=== PATIENT | male | born 1995 | race Caucasian/White ===

== ENCOUNTER 2017-06-05 05:28 | Day surgery (SDC) | payer BC, OTHER ==
[~2017-06-05] VITALS: Ht 180.3 cm; Wt 76.7 kg
--- NOTE | ~2017-06-05 | O ---
[facility] [place] [address] OPERATIVE REPORT Name: JOSE PALACIOS Room #: DEP [facility] M..#: [id number] Admission: 06/05/17 Attend Phys: Marcos Schofield MD Discharge: 06/05/17 Date of : 89 Report #: [id number] THIS REPORT FOR: //name// CC: Marcos Mcelroyclarke Riosmakenna DATE OF SERVICE: 06/05/2017 PREOPERATIVE DIAGNOSIS: Herniated lumbar disk, L4-L5, right. POSTOPERATIVE DIAGNOSIS: Herniated lumbar disk, L4-L5, right. PROCEDURE: Lumbar laminectomy and diskectomy, L4-L5, right. SURGEON: Marcos Schofield MD INDICATIONS: This 21-year-old active athletic male complains of low back pain and radiating right leg pain which has been a problem for over a year. He has tried conservative measures with some limited benefit. MRI study confirms a herniated disk extruded toward the right side causing moderate nerve root impingement. He has some similar degenerative disk changes at L5-S1, but this is mild and toward the opposite left side where he is really not symptomatic. Given his current symptoms and poor response with time, medications, therapy and epidural injections, he has elected to go ahead with decompressive laminectomy and diskectomy at L4-L5 toward the right side. DESCRIPTION OF PROCEDURE: The patient was taken to the operating room where he was placed under general anesthesia. Prophylactic intravenous antibiotics were administered at the lumbar spine. He was positioned in the prone position, and the low back was meticulously prepped and draped. C-arm was used to visualize the appropriate level, and a skin incision was made just to the right of midline overlying the L4-L5 interspace. This was carried through fascia and the paraspinal muscles were retracted laterally exposing the lamina. A small laminotomy in the inferior aspect of L4 and the superior aspect of L5 was created. This was extended laterally undercutting the facet joint slightly to allow good lateral exposure. The ligamentum was excised. The dura and nerve root were found to be prominent and somewhat erythematous consistent with some chronic compression. The nerve root was gently freed up and retracted toward the midline. There was a rather large extruded herniated disk, which was scarred and below the nerve root. This was freed up, and there was an obvious opening in the annulus, which was probed. A moderate amount of additional loose degenerative disk debris was identified and removed from the disk space. A marker was placed in the disk, and a C-arm view was obtained confirming that I was at the appropriate L4-L5 level. The disk space was then further decompressed using pituitary rongeurs. A good deal of loose degenerative disk debris was removed. There was still moderate firm adherent disk material [address] [address] OPERATIVE REPORT Name: SUZANNEJOSE MOLLY Room #: DEP [facility] M.Brien.#: [id number] Admission: 06/05/17 Attend Phys: Marcos Schofield MD Discharge: 06/05/17 Date of : 89 Report #: [id number] remaining which was not removed. The annulus seemed to be otherwise intact, and the significant bulging which was noted initially seemed to improve nicely following the decompression of the disk space itself. The canal was carefully inspected proximally and distally and well across the midline. No other disk fragments were identified. At this point, the nerve root seemed to be freed up nicely and appeared to be without any significant impingement. The wound was copiously irrigated. Good hemostasis was established, and the area covered with a small sheet of Gelfoam soaked in thrombin. 40 mg of Depo-Medrol was also left in the epidural space. The fascia and muscle layer were then closed with multiple #1 Vicryl sutures. The subcutaneous tissues were closed with 2-0 Monocryl. The skin was closed with a running subcuticular 2-0 Prolene supplemented with Steri-Strips. A sterile dressing was applied. The patient was awakened and returned to recovery room in good condition. He will be monitored there for a suitable period and then either discharged home from the recovery room or after a brief stay on the floor if symptoms require. <ELECTRONICALLY SIGNED> By: Marcos Schofield MD 06/06/17 0753 [id number] Marcos Schofield MD /nt
[~2017-06-05 05:28] MED LIST: LORATIDINE 10 M10 M1 PO; QVAR8.7 G1 INH
[2017-06-05 08:24] VITALS: BP 127/67
[2017-06-05 12:51] VITALS: BP 127/67
== END 2017-06-05 13:50 | disposition home or self-care (01) ==
LOC: OR 05:28 → TBA 05:29 → OR 07:08
DX: M51.26 Other intervertebral disc displacement, lumbar region (principal); J45.909 Unspecified asthma, uncomplicated; Z98.890 Other specified postprocedural states
CPT/HCPCS: 50010; 50101; 50402; 50704; 50850; 56525; 62110; 62900; 70005

== ENCOUNTER 2018-01-01 05:27 | Day surgery (SDC) | payer BC, OTHER ==
[~2018-01-01] VITALS: Ht 180.3 cm; Wt 74.4 kg
--- NOTE | ~2018-01-01 | O ---
[facility] [place] [address] OPERATIVE REPORT Name: JOSE PALACIOS Room #: DEP [facility]..#: [id number] Admission: 01/01/18 Attend Phys: Marcos Schofield MD Discharge: 01/01/18 Date of : 89 Report #: [id number] THIS REPORT FOR: //name// CC: Marcso Cross DATE OF SERVICE: 01/01/2018 PREOPERATIVE DIAGNOSES: Herniated lumbar disk, L5-S1 left with radiculopathy. POSTOPERATIVE DIAGNOSES: Herniated lumbar disk, L5-S1 left with radiculopathy. PROCEDURE: Decompressive laminectomy, diskectomy, L5-S1, left. SURGEON: Marcos Schofield MD. INDICATIONS: This slender, fit, active 22-year-old male who has had problems with early multilevel degenerative disk changes. He underwent a previous L4-L5 laminectomy on the right side a number of months ago. He had excellent improvement in his radiating right leg pain. At that time, he had no significant left leg symptoms, although his MRI did show some mild disk bulging at the L5-S1 level toward the left side. At that point, given his minimal symptoms, we elected not to explore the L5-S1 level on the opposite left side. Following his initial recovery at his last surgery done about 7 months ago, he advanced activities and was getting back to an excellent rehabilitation program. He developed then rather sudden increase in the opposite side, the left leg pain radiating down toward the foot. Clinical exam was suggestive of new left radiculopathy. A followup MRI study shows satisfactory decompression at L4-L5 toward the right side, but slight increase in disk bulging at L5-S1 toward the left side with some nerve root impingement. Given these findings and significant ongoing symptoms, we have elected to go ahead with decompression of the L5-S1 disk on the left side. We have discussed that with this multilevel degenerative disk process. He may experience some ongoing disk symptoms with back pain or even some progressive instability. Should this occur, a segmental fusion might be necessary. Given his very young age and no apparent deformity or instability, we have elected to avoid a fusion at this point and will limit this to simply a decompressive diskectomy procedure. DESCRIPTION OF PROCEDURE: The patient was taken to the operating room where he was placed under general anesthesia. Prophylactic intravenous antibiotics were administered. He was placed in the prone position, and the low back was meticulously prepped and draped. C-arm was used to localize the appropriate level. A skin incision was made overlying the L5-S1 interspace slightly toward the left of midline. This was carried through fascia, and the muscle was retracted out laterally. The lamina of L5 and S1 were identified, and the levels once again confirmed with C-arm. A small laminotomy in the [address] [address] OPERATIVE REPORT Name: SUZANNEJOSE MORENA [id number] Admission: 01/01/18 Attend Phys: Marcos Schofield MD Discharge: 01/01/18 Date of : 89 Report #: [id number] aspect of L5 and the superior aspect of S1 was created. The ligament was incised, the dura and nerve root seemed to be somewhat prominent consistent with some underlying disk bulging. The nerve root was carefully retracted toward the midline exposing the underlying disk. The disk was found to be quite prominent and soft with evidence of a significant disk protrusion, but without a loose free fragment. I could easily push a small [place] through the attenuated annulus into the disk space and a moderate amount of loose degenerative disk debris immediately came through. Another C-arm view was taken confirming that the probe was in the appropriate L5-S1 disk space. The disk itself was then debrided using multiple pituitary rongeurs. A good deal of loose degenerative disk debris was removed. This resulted in significant improvement in overall disk bulging, and the canal caliber seemed to be improved nicely. The nerve root seemed to be freed up without any further significant impingement. The wound was copiously irrigated. Good hemostasis was established, 40 mg of Depo-Medrol were left around the nerve root in the epidural space. A small sheet of Gelfoam was used to cover the exposed dura covering the small laminotomy defect. The fascia was then closed with multiple #1 Vicryl sutures. The subcutaneous tissues were closed with 2-0 Monocryl. The skin was closed with 2-0 Prolene. A sterile dressing was applied. The patient was awakened and returned to recovery room in good condition. <ELECTRONICALLY SIGNED> By: Marcos Schofield MD 01/02/18 1305 1120 1141 Marcos Schofield MD /nt
--- NOTE | ~2018-01-01 | PATH ---
[facility] [address] [place] [address] PATHOLOGY RPT PROCEDURE Name: GLENN PALACIOS Room #: DEP [facility] M.R.#: [id number] Admission: 01/01/18 Date of : 89 Discharge: 01/01/18 Report #: [id number] Path Case #: [id number] [facility] Accession Number: [id number] . 01 Material submitted: . DISC . 01 Clinical history: . Disc displacement, disorder . 02 Diagnosis: Disc, lumbar discectomy: - Reactive chondroid matrix, compatible with nucleus pulposus. . (IUV:mml; 01/02/18) [facility]/01/02/2018 . 02 Electronically signed: . Bella Aparicio MD, Pathologist NPI- [id number] . 01 Gross description: . The specimen is received in formalin, labeled "Dold, Glenn, disc" and consists of multiple fragments of fibrous pink-white tissue measuring 4.6 x 4.0 x 0.7 cm in aggregate. A outreach representative portion is submitted in A1. (SDY; 01/01/2018) SYU/SYU . 02 Pathologist provided ICD-10: M51.86 . 02 CPT . 850026 Specimen Comment: A courtesy copy of this report has been sent to Specimen Comment: [phone]. Specimen Comment: Report sent to Performed at: [address] [id number] MD Lucas Nguyen MD Phone: [phone] Performed at: [address] [id number] MD Bella Aparicio MD Phone: [phone]
[2018-01-01 09:07] VITALS: BP 150/63
[2018-01-01 11:36] VITALS: BP 150/63
== END 2018-01-01 12:50 | disposition home or self-care (01) ==
LOC: OR 05:27 → TBA 05:28 → OR 11:36
DX: M51.16 Intervertebral disc disorders with radiculopathy, lumbar region (principal); Z79.899 Other long term (current) drug therapy; Z98.890 Other specified postprocedural states; Z87.09 Personal history of other diseases of the respiratory system
CPT/HCPCS: 50010; 50101; 50402; 50704; 50850; 56525; 70005